=== PATIENT | male | born 1955 | race Hispanic/Latino ===

== ENCOUNTER 2021-06-29 05:40 | Day surgery (SDC) | payer OTHER ==
[2021-06-26 09:43] LABS: BASOPHILS % (AUTO) 0.7 % (0.0-5.0); EOSINOPHILS % (AUTO) 4.3 % (0.0-8.0); HEMATOCRIT 41.9 % (42-54); LYMPHOCYTES % (AUTO) 27.3 % (21.0-51.0); MEAN CORPUSCULAR HEMOGLOBIN 31.4 pg (27.0-33.0); MEAN CORPUSCULAR HGB CONC 34.1 g/dL (32.0-36.0); MEAN CORPUSCULAR VOLUME 92.1 fL (79-99); MONOCYTES % (AUTO) 9.6 % (3.0-13.0); NEUTROPHILS % (AUTO) 57.8 % (40.0-77.0); PLATELET COUNT (AUTO) 295 K/uL (130-400); RED BLOOD CELL COUNT(AUTO) 4.55 MIL/uL (4.50-6.20); RED CELL DISTRIBUTION WIDTH 14.3 % (11.0-15.5); WHITE BLOOD COUNT (AUTO) 7.2 K/uL (4.8-10.8)
[2021-06-26 09:51] LABS: CREATININE 1.2 mg/dL (0.5-1.5); POTASSIUM 4.3 mmol/L (3.5-5.1)
[2021-06-26 09:53] LABS: INR 0.94 (0.85-1.15); PROTHROMBIN TIME 10.3 SEC (9.6-11.6)
[2021-06-26 09:54] LABS: PARTIAL THROMBOPLASTIN TIME 27.2 SEC (26.3-35.5)
[2021-06-27 13:56] VITALS: BP 114/73
[2021-06-29] VITALS (9 sets, daily range): BP systolic 120–131; BP diastolic 69–84
[~2021-06-29] VITALS: Ht 170.2 cm; Wt 89.0 kg
[~2021-06-29 05:40] MED LIST: AEC81 PO; ATOR40TA69 PO; DUTA0.5C37 PO; LEVO75CA5 PO; PROP60TA20 PO; VITAMIN D PO
[2021-06-29] MEDS ORDERED: 0.9%NACL 1000ML 1,000 ML IV ONE (06:10)
[2021-06-29] MEDS ORDERED: ZINC220T4 PO (06:58)
[2021-06-29] MEDS ORDERED: ASCO100031 PO (06:58)
[2021-06-29] MEDS ORDERED: MIDAZOLAM HCL 1 MG/ML 2ML VIAL ONE ×3 (07:13→08:28)
[2021-06-29] MEDS ORDERED: MEPERIDINE-PF 25 MG/ML SYG ONE ×3 (07:13→08:28)
[2021-06-29] MEDS ORDERED: LIDOCAINE HCL 1% MDV 50ML VIAL ONE (07:13)
[2021-06-29] MEDS ORDERED: BUPIVACAINE/PF 0.25% 30ML VIAL IJ ONE (07:13)
[2021-06-29] MEDS ORDERED: CEFAZOLIN SODIUM 1 GM VIAL ONE (07:13)
[2021-06-29] MEDS ORDERED: IODIXANOL 320 MG/ML 100 ML VIAL ONE (08:08)
[2021-06-29] MEDS ORDERED: TRAM50TA4 PO (09:42)
[2021-06-29] MEDS ORDERED: ACETAMINOPHEN WITH CODEINE 1 TAB TAB PO PRN (10:00)
== END 2021-06-29 13:25 | disposition home or self-care (01) ==
LOC: DAH 05:40
PROVIDERS: ATTEND Internal Medicine Cardiovascular Disease
DX: I49.5 Sick sinus syndrome (principal); Z45.09 Encounter for adjustment and management of other cardiac device; G90.01 Carotid sinus syncope; I10 Essential (primary) hypertension; E03.9 Hypothyroidism, unspecified; E78.5 Hyperlipidemia, unspecified; K21.9 Gastro-esophageal reflux disease without esophagitis; Z79.82 Long term (current) use of aspirin; Z79.01 Long term (current) use of anticoagulants; Z79.899 Other long term (current) drug therapy; Z98.890 Other specified postprocedural states; Z86.73 Personal history of transient ischemic attack (TIA), and cerebral infarction without residual deficits
CPT/HCPCS: 33208; 33286; 36415; 71045; 80048; 85025; 85610; 85730; 93005; A4215; A4216; A4221; A4222; A4223 ×3; A4606; A4649; A4663; C1785; C1894; C1898 ×2; J0690; J2175 ×3; J2250 ×3; J3490 ×2; J7030; Q9967; 99156; 99157

== ENCOUNTER → 2021-11-16 | Outpatient (CLI) | payer OTHER ==
[~2021-11-16] MED LIST changes: +ASCO100031 PO; +TRAM50TA4 PO; +ZINC220T4 PO
== END | disposition home or self-care (01) ==
LOC: SHCH 10:50
PROVIDERS: ATTEND Student in an Organized Health Care Education/Training Program
DX: G45.9 Transient cerebral ischemic attack, unspecified (principal); R42 Dizziness and giddiness; I49.5 Sick sinus syndrome
CPT/HCPCS: 93880

== ENCOUNTER → 2022-05-17 | Outpatient (CLI) | payer OTHER | END | disposition home or self-care (01) | LOC: SHCH 10:17 | PROVIDERS: ATTEND Internal Medicine Cardiovascular Disease | DX: I48.0 Paroxysmal atrial fibrillation (principal); I11.9 Hypertensive heart disease without heart failure; E78.5 Hyperlipidemia, unspecified; E03.9 Hypothyroidism, unspecified; Z86.73 Personal history of transient ischemic attack (TIA), and cerebral infarction without residual deficits | CPT/HCPCS: 93306 ==

== ENCOUNTER → 2022-09-11 | Outpatient (CLI) | payer OTHER ==
[2022-09-11 14:38] LABS: CREATININE 1.2 mg/dL (0.5-1.5)
== END | disposition home or self-care (01) ==
LOC: LAB 08:06
PROVIDERS: ATTEND Internal Medicine Cardiovascular Disease
DX: I48.0 Paroxysmal atrial fibrillation (principal)
CPT/HCPCS: 36415; 82565; 84520

== ENCOUNTER 2022-10-01 05:43 | Observation (INO) | payer OTHER ==
[2022-09-27 09:05] LABS: BASOPHILS % (AUTO) 0.7 % (0.0-5.0); EOSINOPHILS % (AUTO) 3.5 % (0.0-8.0); HEMATOCRIT 41.7 % (42-54); LYMPHOCYTES % (AUTO) 28.9 % (21.0-51.0); MEAN CORPUSCULAR HEMOGLOBIN 30.7 pg (27.0-33.0); MEAN CORPUSCULAR VOLUME 87.8 fL (79-99); MONOCYTES % (AUTO) 9.4 % (3.0-13.0); NEUTROPHILS % (AUTO) 57.1 % (40.0-77.0); PLATELET COUNT (AUTO) 328 K/uL (130-400); RED BLOOD CELL COUNT(AUTO) 4.75 MIL/uL (4.50-6.20); RED CELL DISTRIBUTION WIDTH 13.2 % (11.0-15.5); WHITE BLOOD COUNT (AUTO) 7.4 K/uL (4.8-10.8)
[2022-09-27 09:18] LABS: CREATININE 1.4 mg/dL (0.5-1.5); INR 0.93 (0.85-1.15); POTASSIUM 4.1 mmol/L (3.5-5.1); PROTHROMBIN TIME 10.1 SEC (9.6-11.6)
[2022-09-27 09:19] LABS: PARTIAL THROMBOPLASTIN TIME 31.9 SEC (26.3-35.5)
[2022-09-30 09:26] VITALS: BP 113/76
[~2022-10-01] VITALS: Ht 170.2 cm; Wt 81.0 kg
[2022-10-01] VITALS (15 sets, daily range): BP systolic 18–122; BP diastolic 67–77
[~2022-10-01 05:43] MED LIST changes: -AEC81 PO; +APIX5TAB PO; +DRON400T7 PO; +OMEP20TA20 PO; -PROP60TA20 PO; -TRAM50TA4 PO; +VITAD50000 PO; -VITAMIN D PO
[2022-10-01] MEDS ORDERED: MIDAZOLAM HCL 1 MG/ML 2ML VIAL ONE (07:18)
[2022-10-01] MEDS ORDERED: ONDANSETRON 4MG INJ ONE (07:20)
[2022-10-01] MEDS ORDERED: LIDOCAINE PF 100MG/5ML (2%) SYRINGE 5ML ONE (07:20)
[2022-10-01] MEDS ORDERED: PHENYLEPHRINE HCL 10 MG/ML 1ML VIAL IV ONE ×2 (07:20→10:33)
[2022-10-01] MEDS ORDERED: DEXAMETHASONE SOD PHOSPHATE 10MG/ML 1ML VIAL ONE (07:20)
[2022-10-01] MEDS ORDERED: HEPARIN 10,000 UNIT/10ML (1,000 UNIT/ML) VIAL ONE ×2 (07:20→07:43)
[2022-10-01] MEDS ORDERED: ROCURONIUM 10MG/1ML SYR 10 MG/ML ML ONE (07:21)
[2022-10-01] MEDS ORDERED: EPHEDRINE SULFATE 50 MG/ML AMPULE ONE (07:21)
[2022-10-01] MEDS ORDERED: PROPOFOL 10 MG/ML 20ML VIAL IV ONE (07:21)
[2022-10-01] MEDS ORDERED: FENTANYL CITRATE PF 50 MCG/1 ML 2ML VIAL ONE (07:21)
[2022-10-01] MEDS ORDERED: GLYCOPYRROLATE 1 MG/5 ML SYRINGE ONE (07:23)
[2022-10-01] MEDS ORDERED: NEOSTIGMINE 5MG/5ML SYR IV ONE (07:23)
[2022-10-01] MEDS ORDERED: LIDOCAINE HCL 1% MDV 50ML VIAL ONE (08:02)
[2022-10-01] MEDS ORDERED: ROCURONIUM BROMIDE 10MG/1ML 5ML VL ONE (09:17)
[2022-10-01] MEDS ORDERED: ISOPROTERENOL HCL 0.2 MG/ML AMP/VIAL/BAG ONE ×2 (10:47→10:55)
[2022-10-01] MEDS ORDERED: PROTAMINE SULFATE 10 MG/ML 25ML VIAL IV ONE (11:10)
[2022-10-01] MEDS ORDERED: ACETAMINOPHEN 325 MG TAB PO PRN ×2 (12:00)
[2022-10-01] MEDS ORDERED: PANTOPRAZOLE 40 MG TAB DR PO SCH (14:00)
[2022-10-01] MEDS: SUCRALFATE 1 GM TABLET PO SCH ×2 (14:35→19:12)
[2022-10-01] MEDS: APIXABAN 5 MG TABLET PO SCH (20:56)
[2022-10-01] MEDS: DRONEDARONE HYDROCHLORIDE 400 MG TABLET PO SCH (20:56)
[2022-10-01] MEDS ORDERED: ASCORBIC ACID 500 MG TAB PO SCH (21:00)
[2022-10-01] MEDS ORDERED: ZINC SULFATE 50 MG PO SCH (21:00)
[2022-10-01] MEDS ORDERED: ZINC 50MG PO SCH (21:00)
[2022-10-01] MEDS ORDERED: NON-FORMULARY MEDICATION 1 EACH (Ascorbic Acid (Vitamin C) 1,000 MG) PO SCH (21:00)
[2022-10-02] VITALS: BP 107/55
[2022-10-02] MEDS: SUCRALFATE 1 GM TABLET PO SCH ×2 (00:24→06:45)
[2022-10-02 04:00] VITALS: BP_SYST 105; BP_SYST 113; BP_DIAS 44; BP_DIAS 66
[2022-10-02] MEDS ORDERED: LEVOTHYROXINE 75 MCG TABLET PO SCH (06:30)
[2022-10-02] MEDS ORDERED: NON-FORMULARY MEDICATION 1 EACH (Levothyroxine Sodium (Levothyroxine) 75 MCG) PO SCH (07:30)
[2022-10-02 08:00] VITALS: BP 116/78
[2022-10-02] MEDS: APIXABAN 5 MG TABLET PO SCH (08:07)
[2022-10-02] MEDS: DRONEDARONE HYDROCHLORIDE 400 MG TABLET PO SCH (08:21)
[2022-10-02] MEDS ORDERED: DUTASTERIDE 0.5MG PO SCH (09:00)
[2022-10-02] MEDS ORDERED: ATORVASTATIN 40 MG TABLET PO SCH (09:00)
[2022-10-02] MEDS ORDERED: NON-FORMULARY MEDICATION 1 EACH (Dutasteride 0.5 MG) PO SCH (09:00)
[2022-10-02] MEDS ORDERED: OMEP40CA21 PO (09:00)
[2022-10-02] MEDS ORDERED: PANTOPRAZOLE 40 MG TAB DR PO SCH (09:00)
[2022-10-02] MEDS ORDERED: SUCR1ORA15 PO (09:00)
[2022-10-04] MEDS ORDERED: ERGOCALCIFEROL (VITAMIN D2) 50,000 UNIT CAPSULE PO SCH (09:00)
== END 2022-10-02 11:34 | disposition home or self-care (01) ==
LOC: DAH 05:43 → DAHIP 05:44 → 2DH 14:20
PROVIDERS: ADMIT Internal Medicine Cardiovascular Disease; ATTEND Internal Medicine Cardiovascular Disease
DX: I48.0 Paroxysmal atrial fibrillation (principal); Z20.822 Contact with and (suspected) exposure to COVID-19; I10 Essential (primary) hypertension; E03.9 Hypothyroidism, unspecified; E78.5 Hyperlipidemia, unspecified; R55 Syncope and collapse; Z95.0 Presence of cardiac pacemaker; Z79.899 Other long term (current) drug therapy; Z98.890 Other specified postprocedural states
CPT/HCPCS: 80048; 85025; 85610; 85730; 87426; 36415; 93005; 93657 ×2; 93622; 93623; 93656; 85347 ×7; A4344; C1894 ×3; C1893; A4215 ×2; C1731; A4649 ×2; C1732; C1730; G0378 ×24; J3010; J3490 ×4; J1100; J2710; J2720; J2001; J1644 ×4; J2250; J2704; J2405; J2370 ×2; A4223 ×3; A4222; A4221; A4663; A4216; A4606

== ENCOUNTER 2023-07-30 17:02 | Emergency (ER) | payer OTHER ==
[~2023-07-30] VITALS: Ht 170.2 cm; Wt 82.1 kg
[~2023-07-30 17:02] MED LIST changes: -DRON400T7 PO; -OMEP20TA20 PO; +OMEP40CA21 PO; +SUCR1ORA15 PO
[2023-07-30 19:21] LABS: BASOPHILS # (AUTO) 0.06 K/uL (0.00-0.20); BASOPHILS % (AUTO) 0.7 % (0.0-5.0); EOSINOPHILS # (AUTO) 0.21 K/uL (0.00-0.70); EOSINOPHILS % (AUTO) 2.4 % (0.0-8.0); HEMATOCRIT 45.8 % (42-54); IMMATURE GRANULOCYTE ABSOLUTE 0.03 K/uL (0-1); LYMPHOCYTES # (AUTO) 2.2 K/uL (1.0-4.8); LYMPHOCYTES % (AUTO) 25.3 % (21.0-51.0); MEAN CORPUSCULAR HEMOGLOBIN 31.4 pg (27.0-33.0); MEAN CORPUSCULAR HGB CONC 34.3 g/dL (32.0-36.0); MEAN CORPUSCULAR VOLUME 91.6 fL (79-99); MONOCYTES # (AUTO) 0.8 K/uL (0.1-1.0); MONOCYTES % (AUTO) 8.8 % (3.0-13.0); NEUTROPHILS # (AUTO) 5.5 K/uL (1.8-7.7); NEUTROPHILS % (AUTO) 62.5 % (40.0-77.0); PLATELET COUNT (AUTO) 322 K/uL (130-400); RED CELL DISTRIBUTION WIDTH 13.2 % (11.0-15.5); WHITE BLOOD COUNT (AUTO) 8.8 K/uL (4.8-10.8)
[2023-07-30 19:33] LABS: CREATININE 1.1 mg/dL (0.5-1.5); POTASSIUM 3.9 mmol/L (3.5-5.1)
[2023-07-30 19:38] LABS: ALBUMIN 4.1 g/dL (3.5-5.0); BILIRUBIN,TOTAL 0.5 mg/dL (0.2-1.0)
[2023-07-30 20:46] LABS: APPEARANCE,URINE CLEAR (CLEAR); BILIRUBIN,URINE NEGATIVE (NEGATIVE); COLOR,URINE COLORLESS (YELLOW); GLUCOSE, URINE (UA) NEGATIVE (NEGATIVE); KETONES,URINE NEGATIVE (NEGATIVE); LEUKOCYTE ESTERASE ,URINE 25 Leu/uL (NEGATIVE); NITRATE,URINE NEGATIVE (NEGATIVE); OCCULT BLOOD,URINE NEGATIVE (NEGATIVE); PROTEIN,URINE NEGATIVE (NEGATIVE); UROBILINOGEN,URINE 0.2 mg/dL (0.2-1.0)
[2023-07-30 20:58] LABS: ADD UA MICROSCOPIC YES
[2023-07-30 20:59] LABS: BACTERIA,URINE RARE /HPF (None Seen); MUCUS,URINE RARE LPF (None Seen); RBC,URINE 0-1 /HPF (0-1)
[2023-07-30] MEDS ORDERED: CEPH500B PO (21:25)
[2023-07-30 21:26] VITALS: BP 141/88; PULSE 72; RESP 16; O2SAT 98
== END 2023-07-30 21:36 | disposition home or self-care (01) ==
LOC: EDH 17:02
DX: N39.0 Urinary tract infection, site not specified (principal); I48.91 Unspecified atrial fibrillation; I10 Essential (primary) hypertension; E78.00 Pure hypercholesterolemia, unspecified; Z79.899 Other long term (current) drug therapy; Z98.890 Other specified postprocedural states
CPT/HCPCS: 36415; 70450; 71045; 80053; 81001; 84484; 85025; 87088; 93005